=== PATIENT | male | born 2000 | race Hispanic/Latino ===

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

== ENCOUNTER 2022-06-09 23:21 | Emergency (ER) | payer OTHER | END 2022-06-09 23:39 | disposition left against medical advice (07) | LOC: MADERS 23:21 | DX: Z53.21 Procedure and treatment not carried out due to patient leaving prior to being seen by health care provider (principal) ==

== ENCOUNTER 2022-08-20 20:24 | Emergency (ER) | payer OTHER ==
[2022-08-20 21:47] LABS: #Basophils 0.1 thou/uL (0.0-0.2); #Eosinphils 0.1 thou/uL (0.0-0.7); #Lymphocytes 3.2 thou/uL (1.20-3.40); #Monocytes 0.8 thou/uL (0.11-0.59); #Neutrophils 11.9 thou/uL (1.40-6.50); %Basophils 0.7 % (0.0-1.0); %Eosinophils 0.4 % (0.0-10.0); Hemoglobin 14.1 g/dL (14.0-18.0); Mean Corpuscular Hemoglobin 31.6 pg (25.0-35.0); Mean Corpuscular Volume 92.9 fl (78.0-98.0); Platelet Count 361 10x3/uL (130-400); Red Blood Cell (RBC) Count 4.47 mill/uL (4.00-5.20); White Blood Cell (WBC) Count 16.1 10x3/uL (4.8-10.8)
[2022-08-20] MEDS ORDERED: Lorazepam 1 MG TAB ONE (21:48)
[2022-08-20 21:58] LABS: Amphetamine Detected (NotDetected); Barbiturates Screen Not Detected (NotDetected); Benzodiazepine Screen Not Detected (NotDetected); Cocaine Metabolite Screen Not Detected (NotDetected); Methadone Not Detected (NotDetected); Methamphetamine Detected (NotDetected); Opiate Screen Not Detected (NotDetected); Oxycodone Screen Not Detected (NotDetected); Phencyclidine (PCP) Not Detected (NotDetected); THC/Cannabinoid Screen Not Detected (NotDetected); Tricyclic Screen Not Detected (NotDetected)
[2022-08-20 22:07] LABS: ALT (SGPT) 13 U/L (8-55); AST (SGOT) 17 U/L (5-34); Albumin 4.7 g/dL (3.5-5.0); Alcohol Less than 10.0 mg/dL (Less than 10); Alkaline Phosphatase 76 U/L (50-130); Anion Gap 14 mmol/L (10-20); BUN (Urea Nitrogen) 10 mg/dL (8.9-20.6); Bilirubin, Total 1.7 mg/dL (0.2-1.2); Calc. Creatinine Clearance 0 mL/min (70-130); Calcium 9.8 mg/dL (7.8-10.44); Carbon Dioxide 26 mmol/L (22-29); Chloride 104 mmol/L (98-107); Estimated GFR 107; Glucose 108 mg/dL (70-105); Potassium 3.9 mmol/L (3.5-5.1); Protein, Total 7.7 g/dL (6.0-8.3); Sodium 140 mmol/L (136-145)
[2022-08-21 07:32] LABS: SARS-CoV-2 NAA Rapid Test Not Detected (NotDetected)
== END 2022-08-21 06:51 | disposition left against medical advice (07) ==
LOC: MADERS 20:24
DX: F20.9 Schizophrenia, unspecified (principal); F15.10 Other stimulant abuse, uncomplicated; F17.210 Nicotine dependence, cigarettes, uncomplicated; Z20.822 Contact with and (suspected) exposure to COVID-19
CPT/HCPCS: 36415; 80053; 80306; 80307; 85025; 99284; U0002

== ENCOUNTER 2022-11-27 21:29 | Emergency (ER) | payer OTHER, SELFPAY ==
[~2022-11-27 21:29] MED LIST: Iopamidol 370 76% 200 ML VIAL ONE
[2022-11-27 21:54] LABS: #Basophils 0.1 thou/uL (0.0-0.2); #Eosinphils 0.2 thou/uL (0.0-0.7); #Lymphocytes 3.4 thou/uL (1.20-3.40); #Monocytes 0.5 thou/uL (0.11-0.59); #Neutrophils 4.2 thou/uL (1.40-6.50); %Basophils 1.2 % (0.0-1.0); %Eosinophils 2.2 % (0.0-10.0); %Lymphocytes 40.5 % (28.0-48.0); %Monocytes 6.1 % (0.0-4.0); %Neutrophils 50.1 % (31.0-61.0); Hematocrit 44.6 % (42.0-52.0); Hemoglobin 14.7 g/dL (14.0-18.0); Mean Corpuscular HGB CONC 33.1 g/dL (32.0-36.0); Mean Corpuscular Volume 93.8 fl (78.0-98.0); Mean Platelet Volume 10.3 fL (7.4-10.4); Platelet Count 296 10x3/uL (130-400); RBC Distribution Width 11.7 % (11.5-14.5); Red Blood Cell (RBC) Count 4.75 mill/uL (4.00-5.20); White Blood Cell (WBC) Count 8.4 10x3/uL (4.8-10.8)
[2022-11-27 22:15] LABS: ALT (SGPT) 11 U/L (8-55); AST (SGOT) 13 U/L (5-34); Albumin 4.4 g/dL (3.5-5.0); Alkaline Phosphatase 79 U/L (50-130); Anion Gap 17 mmol/L (10-20); BUN (Urea Nitrogen) 14 mg/dL (8.9-20.6); Bilirubin, Total 0.7 mg/dL (0.2-1.2); Calc. Creatinine Clearance 0 mL/min (70-130); Calcium 9.8 mg/dL (7.8-10.44); Carbon Dioxide 24 mmol/L (22-29); Chloride 104 mmol/L (98-107); Estimated GFR 103; Globulin 2.9 g/dL (2.4-3.5); Glucose 97 mg/dL (70-105); Magnesium 1.7 mg/dL (1.7-2.2); Potassium 3.9 mmol/L (3.5-5.1); Protein, Total 7.3 g/dL (6.0-8.3); Sodium 141 mmol/L (136-145)
[2022-11-27] MEDS ORDERED: Sodium Chloride 0.9% 1,000 ML ONE (22:28)
[2022-11-27 22:34] LABS: Acetaminophen Less than 10 mcg/mL (10.0-30.0); Alcohol Less than 10.0 mg/dL (Less than 10); Salicylate Less than 8.0 mg/dL (15.0-30.0)
[2022-11-27 23:05] LABS: Bilirubin Negative (Negative); Blood, Urine Negative (Negative); Clarity Clear (Clear); Glucose, Urine (Dipstick) Negative (Negative); Ketone, Urine Negative (Negative); Leukocyte Negative (Negative); Nitrite Negative (Negative); Protein, Urine (Dipstick) Negative (Neg-Trace); Urobilinogen 0.2 mg/dL (Less than 2)
[2022-11-27 23:06] LABS: CAUTI Indications for Culture Alt mental st,lethar; RBC/HPF None Seen HPF (0-3); Squamous Epithelial 0-3 HPF (0-3); WBC/HPF None Seen HPF (0-3)
[2022-11-27 23:07] LABS: Urine Culture Reflex No No
[2022-11-27 23:11] LABS: Amphetamine Not Detected (NotDetected); Barbiturates Screen Not Detected (NotDetected); Benzodiazepine Screen Not Detected (NotDetected); Cocaine Metabolite Screen Not Detected (NotDetected); Methadone Not Detected (NotDetected); Methamphetamine Not Detected (NotDetected); Opiate Screen Not Detected (NotDetected); Oxycodone Screen Not Detected (NotDetected); Phencyclidine (PCP) Not Detected (NotDetected); THC/Cannabinoid Screen Not Detected (NotDetected); Tricyclic Screen Not Detected (NotDetected)
== END 2022-11-28 00:28 ==
LOC: MADERS 21:29 → EEVIPCON 21:29 → MADERS 11-28 00:28
DX: T14.91XA Suicide attempt, initial encounter (principal); T71.162A Asphyxiation due to hanging, intentional self-harm, initial encounter; F17.210 Nicotine dependence, cigarettes, uncomplicated; X83.8XXA Intentional self-harm by other specified means, initial encounter; Y92.149 Unspecified place in prison as the place of occurrence of the external cause
CPT/HCPCS: 36415; 70498; 80053; 80306; 80307; 81001; 82550; 83605; 83735; 84443; 85025; J7050

== ENCOUNTER 2022-12-18 13:58 | Emergency (ER) | payer SELFPAY ==
[2022-12-18] MEDS ORDERED: risperiDONE 1 MG TAB PO SCH (15:15)
== END 2022-12-18 15:27 | disposition home or self-care (01) ==
LOC: MADERS 13:58
DX: F19.159 Other psychoactive substance abuse with psychoactive substance-induced psychotic disorder, unspecified (principal); F17.210 Nicotine dependence, cigarettes, uncomplicated
CPT/HCPCS: 99284

== ENCOUNTER 2023-04-27 09:43 | Emergency (ER) | payer SELFPAY ==
[2023-04-27] MEDS ORDERED: risperiDONE 1 MG TAB PO SCH (10:45)
== END 2023-04-27 10:49 | disposition home or self-care (01) ==
LOC: MADERS 09:43
DX: S50.312A Abrasion of left elbow, initial encounter (principal); R23.4 Changes in skin texture; F17.210 Nicotine dependence, cigarettes, uncomplicated; X58.XXXA Exposure to other specified factors, initial encounter; Y93.89 Activity, other specified; Y92.009 Unspecified place in unspecified non-institutional (private) residence as the place of occurrence of the external cause; Z79.899 Other long term (current) drug therapy
CPT/HCPCS: 99283

== ENCOUNTER 2023-06-22 02:04 | Emergency (ER) | payer SELFPAY ==
[2023-06-22] MEDS ORDERED: risperiDONE 0.5 MG TAB PO SCH (03:00)
== END 2023-06-22 03:24 | disposition home or self-care (01) ==
LOC: MADERS 02:04
DX: F20.0 Paranoid schizophrenia (principal); F17.210 Nicotine dependence, cigarettes, uncomplicated
CPT/HCPCS: 99282

== ENCOUNTER 2023-07-08 04:04 | Emergency (ER) | payer SELFPAY ==
[2023-07-08 05:01] LABS: #Basophils 0.1 thou/uL (0.0-0.2); #Eosinphils 0.6 thou/uL (0.0-0.7); #Lymphocytes 3.8 thou/uL (1.20-3.40); #Monocytes 0.6 thou/uL (0.11-0.59); #Neutrophils 4.8 thou/uL (1.40-6.50); %Basophils 1.1 % (0.0-1.0); %Eosinophils 5.7 % (0.0-10.0); %Lymphocytes 38.4 % (28.0-48.0); %Monocytes 6.1 % (0.0-4.0); %Neutrophils 48.7 % (31.0-61.0); Hematocrit 38.3 % (42.0-52.0); Hemoglobin 12.5 g/dL (14.0-18.0); Mean Corpuscular HGB CONC 32.8 g/dL (32.0-36.0); Mean Corpuscular Hemoglobin 30.9 pg (25.0-35.0); Mean Corpuscular Volume 94.4 fl (78.0-98.0); Mean Platelet Volume 8.7 fL (7.4-10.4); Platelet Count 261 10x3/uL (130-400); RBC Distribution Width 12.6 % (11.5-14.5); Red Blood Cell (RBC) Count 4.05 mill/uL (4.00-5.20); White Blood Cell (WBC) Count 9.8 10x3/uL (4.8-10.8)
[2023-07-08 05:05] LABS: Amphetamine Detected (NotDetected); Barbiturates Screen Not Detected (NotDetected); Benzodiazepine Screen Not Detected (NotDetected); Cocaine Metabolite Screen Detected (NotDetected); Methadone Not Detected (NotDetected); Methamphetamine Detected (NotDetected); Opiate Screen Not Detected (NotDetected); Oxycodone Screen Not Detected (NotDetected); Phencyclidine (PCP) Not Detected (NotDetected); THC/Cannabinoid Screen Not Detected (NotDetected); Tricyclic Screen Not Detected (NotDetected)
[2023-07-08 05:16] LABS: ALT (SGPT) 31 U/L (8-55); AST (SGOT) 22 U/L (5-34); Albumin 3.7 g/dL (3.5-5.0); Alkaline Phosphatase 70 U/L (50-130); Anion Gap 14 mmol/L (10-20); BUN (Urea Nitrogen) 21 mg/dL (8.9-20.6); Bilirubin, Total 0.4 mg/dL (0.2-1.2); Calc. Creatinine Clearance 0 mL/min (70-130); Calcium 8.5 mg/dL (7.8-10.44); Carbon Dioxide 21 mmol/L (22-29); Chloride 109 mmol/L (98-107); Estimated GFR 127; Glucose 83 mg/dL (70-105); Protein, Total 5.7 g/dL (6.0-8.3); Sodium 140 mmol/L (136-145)
[2023-07-08 05:17] LABS: Acetaminophen Less than 10 mcg/mL (10.0-30.0); Alcohol Less than 10.0 mg/dL (Less than 10); Salicylate Less than 8.0 mg/dL (15.0-30.0)
== END 2023-07-08 07:30 | disposition home or self-care (01) ==
LOC: MADERS 04:04
DX: F20.9 Schizophrenia, unspecified (principal); F17.210 Nicotine dependence, cigarettes, uncomplicated
CPT/HCPCS: 36415; 80053; 80306; 80307; 85025; 99284

== ENCOUNTER 2023-08-02 16:18 | Emergency (ER) | payer SELFPAY ==
[2023-08-02] MEDS ORDERED: Ziprasidone 20 MG VIAL ONE (17:02)
[2023-08-02 17:03] LABS: Bilirubin Negative (Negative); Blood, Urine Large (Negative); Glucose, Urine (Dipstick) Negative (Negative); Ketone, Urine Negative (Negative); Leukocyte Negative (Negative); Nitrite Negative (Negative); Protein, Urine (Dipstick) 100 mg/dL (Neg-Trace)
[2023-08-02 17:04] LABS: Specific Gravity, Urine 1.031 (1.002-1.036)
[2023-08-02 17:05] LABS: Clarity Hazy (Clear)
[2023-08-02 17:09] LABS: Amphetamine Detected (NotDetected); Barbiturates Screen Not Detected (NotDetected); Benzodiazepine Screen Not Detected (NotDetected); Cocaine Metabolite Screen Not Detected (NotDetected); Methadone Not Detected (NotDetected); Methamphetamine Detected (NotDetected); Opiate Screen Not Detected (NotDetected); Oxycodone Screen Not Detected (NotDetected); Phencyclidine (PCP) Not Detected (NotDetected); THC/Cannabinoid Screen Not Detected (NotDetected); Tricyclic Screen Not Detected (NotDetected)
[2023-08-02 17:10] LABS: Bacteria/HPF Rare-Few HPF (None Seen); Mucous/LPF 1+ LPF (<2+); RBC/HPF Greater than 50 HPF (0-3); Squamous Epithelial 0-3 HPF (0-3); Urine Culture Reflex Yes Yes
[2023-08-02] MEDS ORDERED: Sterile Water 10 ML ONE (17:14)
[2023-08-02 17:20] LABS: #Basophils 0.1 thou/uL (0.0-0.2); #Eosinphils 0.5 thou/uL (0.0-0.7); #Lymphocytes 3.1 thou/uL (1.20-3.40); #Monocytes 0.7 thou/uL (0.11-0.59); %Basophils 1.2 % (0.0-1.0); %Eosinophils 5.2 % (0.0-10.0); %Lymphocytes 33.3 % (28.0-48.0); %Monocytes 7.3 % (0.0-4.0); Hematocrit 38.1 % (42.0-52.0); Hemoglobin 12.5 g/dL (14.0-18.0); Mean Corpuscular HGB CONC 32.9 g/dL (32.0-36.0); Mean Platelet Volume 7.7 fL (7.4-10.4); Platelet Count 300 10x3/uL (130-400); RBC Distribution Width 11.8 % (11.5-14.5); Red Blood Cell (RBC) Count 4.18 mill/uL (4.00-5.20); White Blood Cell (WBC) Count 9.4 10x3/uL (4.8-10.8)
[2023-08-02 17:37] LABS: ALT (SGPT) 20 U/L (8-55); AST (SGOT) 27 U/L (5-34); Albumin 4.1 g/dL (3.5-5.0); Alkaline Phosphatase 82 U/L (50-130); Anion Gap 15 mmol/L (10-20); BUN (Urea Nitrogen) 19 mg/dL (8.9-20.6); Bilirubin, Total 1.8 mg/dL (0.2-1.2); Calc. Creatinine Clearance 0 mL/min (70-130); Calcium 9.1 mg/dL (7.8-10.44); Carbon Dioxide 22 mmol/L (22-29); Chloride 105 mmol/L (98-107); Estimated GFR 91; Globulin 2.5 g/dL (2.4-3.5); Glucose 93 mg/dL (70-105); Potassium 3.9 mmol/L (3.5-5.1); Protein, Total 6.6 g/dL (6.0-8.3); Sodium 138 mmol/L (136-145)
[2023-08-02 17:38] LABS: Acetaminophen Less than 10 mcg/mL (10.0-30.0); Alcohol Less than 10.0 mg/dL (Less than 10); Salicylate Less than 8.0 mg/dL (15.0-30.0)
== END 2023-08-02 23:04 ==
LOC: MADERS 16:18
DX: F20.9 Schizophrenia, unspecified (principal); F17.210 Nicotine dependence, cigarettes, uncomplicated
CPT/HCPCS: 36415; 80053; 80306; 80307; 81001; 84443; 85025; 87086; 96372; 99285; J3486

== ENCOUNTER 2023-12-12 03:25 | Emergency (ER) | payer SELFPAY | END 2023-12-12 04:02 | disposition home or self-care (01) | LOC: MADERS 03:25 | DX: F15.90 Other stimulant use, unspecified, uncomplicated (principal); F12.90 Cannabis use, unspecified, uncomplicated; F17.210 Nicotine dependence, cigarettes, uncomplicated | CPT/HCPCS: 99284 ==

== ENCOUNTER 2023-12-24 01:27 | Emergency (ER) | payer SELFPAY ==
[2023-12-24] MEDS ORDERED: risperiDONE 1 MG TAB PO SCH (02:15)
== END 2023-12-24 02:18 | disposition home or self-care (01) ==
LOC: MADERS 01:27
DX: F20.9 Schizophrenia, unspecified (principal); F17.210 Nicotine dependence, cigarettes, uncomplicated
CPT/HCPCS: 99283

== ENCOUNTER 2023-12-25 19:50 | Emergency (ER) | payer SELFPAY | END 2023-12-25 22:36 | disposition home or self-care (01) | LOC: MADERS 19:50 | DX: F20.89 Other schizophrenia (principal); F17.210 Nicotine dependence, cigarettes, uncomplicated; Z55.6 Problems related to health literacy | CPT/HCPCS: 99283 ==